=== PATIENT | female | born 1995 | race Caucasian/White ===

== ENCOUNTER → 2020-08-19 17:49 | Outpatient (CLI) | payer OTHER, SELFPAY | PROVIDERS: PCP Nurse Practitioner Family; Referring Provider Obstetrics & Gynecology; Visit Provider Obstetrics & Gynecology | DX: Z11.59 Encounter for screening for other viral diseases (principal) | CPT/HCPCS: 87635; C9803; U0003 ==

== ENCOUNTER 2020-08-24 19:00 | Inpatient (IN) | payer OTHER, SELFPAY ==
--- NOTE | 2020-08-24 19:28 | HP.PCM_ITS ---
- Problem List (1) History of anxiety Status: Acute (2) Post-dates Status: Acute (3) Encounter for induction of labor Status: Acute History Date of Admission: 08/24/20 Final GIOVANNI: 08/18/20 Final GIOVANNI Source: [place] <20 weeks Gestational age: 40 Weeks and 6 Days History of this : This is a 24 year-old, G [1], P [0], at 40weeks 6 days gestational age. uncomplicated. Presents for induction of labor due to postdates . 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 Expected Infant Delivery Method: Spontaneous Vaginal Review of Systems Constitutional: Denies: Chills, Fever, Weight Change HEENT: Denies: Head Aches, Sinus Congestion, Sinus Drainage Cardiovascular: Denies: Chest Pain, Palpitations Respiratory: Denies: Cough, Shortness of breath at rest, Sputum production Gastrointestinal: Denies: Abdominal Pain, Nausea, Vomiting Genitourinary: Denies: Dysuria Musculoskeletal: Denies: Joint Pain, Joint Tenderness Skin: Denies: Rash, Wounds Neurological: Denies: Numbness, Tingling, Focal weakness Psychiatric: Denies: Anxiety, Depression, Homicidal Ideations, Suicidal Ideations Hematologic/ Lymphatic: Denies: Easy Bruising, Easy Bleeding Physical Exam General: Alert, Oriented x3, No apparent distress HEENT: Atraumatic, Normocephalic. Negative for: Thyromegaly, Lymphadenopathy Cardiovascular: Regular rate, Regular Rhythm, No murmurs Lungs: Clear to auscultation, Normal air movement, No rhonchi, No wheeze Abdomen: Bowel Sounds Present, Gravid Extremities:: No edema Neurological: Deep Tendon Reflexes 2+/4 and Symmetrical. Negative for: Clonus FORMWORK CARPENTER: Normal external genitalia Estimated gestational size: Appropriate for gestational size Presentation: Cephalic Assessment/Plan All Active Problems History of anxiety (Acute) Post-dates (Acute) Encounter for induction of labor (Acute) This is a 24 year-old, G [1], P [0], at weeks gestational age. A:Postdates induction of labor Category 1 FHT P: 1) Admit to labor and delivery 2) Routine labs, IV 3) Yu catheter for cervical ripening and PO cytotec. 4) Continuous EFM 5) notified of patient status and collaborative physician.
[2020-08-24 19:29] VITALS: BP 121/77; PULSE 95; PULSE 96; TEMP 36.6; O2SAT 96
[2020-08-24] MEDS: Lactated Ringers 1,000 ML 50 ML IV (19:30)
[2020-08-24 19:42] VITALS: PULSE 108; O2SAT 96
[2020-08-24] MEDS: 0.9% Normal Saline Single 100 ML IV.SOLN. IY (19:45)
[2020-08-24 20:03] LABS: Absolute Lymphocyte Count 2.58 X10^3/uL (0.83-4.51); Absolute Neutrophil Count 9.8 X10^3/uL (2.0-7.7); Basophil# 0.07 X10^3/uL; Basophil% 0.5 % (0-1); Eosinophil# 0.41 X10^3/uL; Eosinophils% 2.9 % (0-5); Hematocrit 34.8 % (37-47); Hemoglobin 11.7 g/dL (12.0-15.0); Lymphocyte # 2.58 X10^3/ul (4.0); Lymphocyte % 18.1 % (19-41); Mean Corp Hgb Conc 33.6 g/dL (32-36); Mean Corpuscular Hgb 30.5 pg (27.0-32.0); Mean Corpuscular Volume 90.6 fL (81-99); Mean Platelet Vol. 10.5 fl (6.2-12.0); Monocyte# 1.02 X10^3/uL; Monocyte% 7.2 % (0-10); NRBC Flagged by Analyzer 0 % (0-5); Neutrophil # 9.78 X10^3/uL (2.7-7.7); Neutrophil % 68.5 % (47-70); Platelet Count 220 K/mm3 (150-450); RBC Distribution Width SD 42.6 fl (35.1-43.9); Red Blood Count 3.84 M/mm3 (4.2-5.4); White Blood Count 14.3 K/mm3 (4.4-11.0)
[2020-08-24 20:05] VITALS: BMI 34.2
[2020-08-24] MEDS: miSOPROStol 25 MCG TABLET PO (20:28)
[2020-08-25] VITALS (49 sets, daily range): BP systolic 99–142; BP diastolic 53–75; PULSE 66–116; TEMP 36.6–37.4; O2SAT 93–98
[2020-08-25] MEDS: Oxytocin 30 units/NS 500 ml 30 UNITS/500 ML IV.SOLN IV (00:20)
--- NOTE | 2020-08-25 07:51 | PN.OBGYN_ITS ---
Patient Problems: Active and Suspected Problems History of anxiety (Acute) Post-dates (Acute) Encounter for induction of labor (Acute) Subjective: Patient seen at bedside. Sitting on birthing ball. Feeling some contractions and pain but not to the point she wants pain control/ epidural. - Physical Exam Vitals/I&O's: Vital Signs Temp Pulse BP Pulse Ox 98.4 F 100 124/73 H 96 08/25/20 07:12 08/25/20 07:12 08/25/20 07:12 08/25/20 06:28 Weight: 193 lb 9.6 oz Body Mass Index (BMI) 34.2 Intake and Output for Last 24 Hours 08/23/20 08/24/20 08/25/20 23:59 23:59 23:59 Intake Total 188.33 / 188.33 143.50 / 143.50 Balance 188.33 / 188.33 143.50 / 143.50 General: Alert, Oriented x3, Cooperative Lungs: Normal air movement Cardiovascular: Regular Rhythm Abdomen: Soft, Non Tender, Gravid Skin: No rashes, No breakdown Neurological: Cranial nerves II-XII grossly intact Laboratory Results 08/24/20 19:30: WBC 14.3 H, RBC 3.84 L, Hgb 11.7 L, Hct 34.8 L, MCV 90.6, MCH 30.5, MCHC 33.6, RDW Std Deviation 42.6, RDW Coeff of La 13.0, Plt Count 220, MPV 10.5, Immature Gran % (Auto) 2.800 H, Neut % (Auto) 68.5, Lymph % (Auto) 18.1 L, Gray % (Auto) 7.2, Eos % (Auto) 2.9, Baso % (Auto) 0.5, Absolute Neuts (auto) 9.8 H, Absolute Lymphs (auto) 2.58, Nucleated RBC % 0 08/24/20 19:30: Blood Type A POSITIVE, Antibody Screen NEGATIVE Current Medications Acetaminophen (Tylenol) 325 - 650 mg PO Q4H PRN PRN PRN Reason: Pain Score 1-3 Al Hydroxide/Mg Hydroxide (Mylanta Ii) 15 - 30 ml PO Q4H PRN PRN PRN Reason: INDIGESTION Citric Acid/Sodium Citrate (Bicitra) 30 ml PO X1 PRN PRN Reason: Section Fentanyl Citrate (Sublimaze (100mcg Ampule)) 25 - 50 mcg IV Q2H PRN PRN PRN Reason: Pain Score 4-10 Lactated Ringer's () 500 mls @ 999 mls/hr IV .Q31M PRN PRN Reason: Epidural Lactated Ringer's () 500 mls @ 999 mls/hr IV .Q31M PRN PRN Reason: Corrective Measures Lactated Ringer's () 1,000 mls @ 50 mls/hr IV .Q20H [facility] Last Infusion: 08/25/20 00:20 Dose: 50 mls/hr Documented by: Oxytocin/Sodium Chloride () 30 units in 500 mls @ 2 mls/hr IV .Q250H [facility] Last Infusion: 08/25/20 07:47 Dose: 12 mls/hr Documented by: Penicillin G Potassium/Dextrose (Penicillin G Potassium) 3 mu in 50 mls @ 100 mls/hr IV Q4H [facility] Last Infusion: 08/25/20 04:57 Dose: Infused Documented by: Ondansetron HCl (Zofran) 4 mg IV Q4H PRN PRN PRN Reason: NAUSEA Prochlorperazine Edisylate (Compazine Iv) 10 mg IV Q6H PRN PRN PRN Reason: NAUSEA Sodium Chloride () 10 - 40 ml IV X1 PRN PRN Reason: SALINE FLUSH Medical Necessity - Tobacco Use Smoking Status: Never smoker Assessment/Plan All Active Problems History of anxiety (Acute) Post-dates (Acute) Encounter for induction of labor (Acute) at 41.0 weeks gestation for induction of labor Continue present management Foleybulb out this morning CE /-1 Pitocin IV at 10 mu/min and will continue to titrate per protocol GBS +, adequately treated at this time Category 1 tracing Desires A.R.O.M after epidural placement Anticipate
[2020-08-25] MEDS: Lactated Ringers 500 ML 999 ML IV ×2 (10:27→18:19)
[2020-08-25] MEDS: fentaNYL-bupivacaine (epidural) 100 ML BAG EPIDURAL ×3 (11:29→21:38)
[2020-08-25] MEDS: Lactated Ringers 1,000 ML 200 ML IV ×2 (12:25→18:07)
--- NOTE | 2020-08-25 13:08 | PN.OBGYN_ITS ---
Patient Problems: Active and Suspected Problems History of anxiety (Acute) Post-dates (Acute) Encounter for induction of labor (Acute) Subjective: Patient seen at bedside. Comfortable with epidural anesthesia. Denies any pain. Objective: CE- 5/80/-1 Category 1 tracing Pitocin IV at 16 mu/min - Physical Exam Vitals/I&O's: Vital Signs Temp Pulse BP Pulse Ox 98.1 F 80 123/75 H 97 08/25/20 11:42 08/25/20 11:56 08/25/20 11:56 08/25/20 11:53 Weight: 193 lb 9.6 oz Body Mass Index (BMI) 34.2 Intake and Output for Last 24 Hours 08/23/20 08/24/20 08/25/20 23:59 23:59 23:59 Intake Total 188.33 / 188.33 1507.96 / 1507.96 Output Total 850 / 850 Balance 188.33 / 188.33 657.96 / 657.96 General: Alert, Oriented x3 HEENT: Atraumatic Lungs: Normal air movement Cardiovascular: Regular rate Abdomen: Soft, Non Tender, Non-Distended, Gravid Skin: No rashes Neurological: Cranial nerves II-XII grossly intact Laboratory Results 08/24/20 19:30: WBC 14.3 H, RBC 3.84 L, Hgb 11.7 L, Hct 34.8 L, MCV 90.6, MCH 30.5, MCHC 33.6, RDW Std Deviation 42.6, RDW Coeff of La 13.0, Plt Count 220, MPV 10.5, Immature Gran % (Auto) 2.800 H, Neut % (Auto) 68.5, Lymph % (Auto) 18.1 L, [place] % (Auto) 7.2, Eos % (Auto) 2.9, Baso % (Auto) 0.5, Absolute Neuts (auto) 9.8 H, Absolute Lymphs (auto) 2.58, Nucleated RBC % 0 08/24/20 19:30: Blood Type A POSITIVE, Antibody Screen NEGATIVE Current Medications Acetaminophen (Tylenol) 325 - 650 mg PO Q4H PRN PRN PRN Reason: Pain Score 1-3 Al Hydroxide/Mg Hydroxide (Mylanta Ii) 15 - 30 ml PO Q4H PRN PRN PRN Reason: INDIGESTION Citric Acid/Sodium Citrate (Bicitra) 30 ml PO X1 PRN PRN Reason: Section Ephedrine Sulfate () 10 mg IV Q10M PRN PRN Reason: hypotension Ephedrine Sulfate () 10 mg IM Q30M PRN PRN Reason: hypotension Fentanyl Citrate (Sublimaze (100mcg Ampule)) 25 - 50 mcg IV Q2H PRN PRN PRN Reason: Pain Score 4-10 Fentanyl/Bupivacaine/Sodium Chlor () 0 ml EPIDURAL UD [facility]; Protocol Last Admin: 08/25/20 11:29 Dose: 100 ml Documented by: Lactated Ringer's () 500 mls @ 999 mls/hr IV .Q31M PRN PRN Reason: Epidural Last Infusion: 08/25/20 10:58 Dose: Infused Documented by: Lactated Ringer's () 500 mls @ 999 mls/hr IV .Q31M PRN PRN Reason: Corrective Measures Lactated Ringer's () 1,000 mls @ 50 mls/hr IV .Q20H [facility] Last Admin: 08/25/20 12:25 Dose: 200 mls/hr Documented by: Oxytocin/Sodium Chloride () 30 units in 500 mls @ 2 mls/hr IV .Q250H [facility] Last Infusion: 08/25/20 09:13 Dose: 16 mls/hr Documented by: Penicillin G Potassium/Dextrose (Penicillin G Potassium) 3 mu in 50 mls @ 100 mls/hr IV Q4H [facility] Last Infusion: 08/25/20 10:00 Dose: Infused Documented by: Nalbuphine HCl (Nubain) 5 mg IV Q3H PRN PRN PRN Reason: ITCHING Naloxone HCl (Narcan) 0.02 mg IV Q1M PRN PRN Reason: RR< 10 AND PT UNRESPONSIVE Ondansetron HCl (Zofran) 4 mg IV Q4H PRN PRN PRN Reason: NAUSEA Prochlorperazine Edisylate (Compazine Iv) 10 mg IV Q6H PRN PRN PRN Reason: NAUSEA Sodium Chloride () 10 - 40 ml IV X1 PRN PRN Reason: SALINE FLUSH Medical Necessity - Tobacco Use Smoking Status: Never smoker Assessment/Plan All Active Problems History of anxiety (Acute) Post-dates (Acute) Encounter for induction of labor (Acute) A/P at 41.0 weeks gestation for induction of labor Category 1 tracing A.R.O.M for large amount of clear fluid IUPC placed to assist with strength of contractions Continue present plan of care Anticipate
--- NOTE | 2020-08-25 18:04 | PCM.PN.BLA ---
Progress Note Patient seen at bedside. Resting well. Denies any pain Category 1 tracing NST reactive Pitocin at 18 mu/min IUPC not reading well- replaced with CE CE- 7/80/-1 A/P at 41.0 weeks gestation for induction of labor Continue present management Position changes with peanut ball Anticipate STROKE Vital Signs/Narrative: Vital Signs Temp Pulse BP Pulse Ox 08/25/20 17:58 99.3 F H 95 104/53 L 97 08/25/20 16:53 90 113/65 08/25/20 16:11 99.1 F 97 08/25/20 16:10 74 114/57 L 08/25/20 14:37 98.7 F 76 99/53 L 98
[2020-08-25] MEDS: Ondansetron 4 MG/2 ML Vial IV (20:49)
[2020-08-25] MEDS: 0.9% Saline Lock 10 ML Syringe IV (20:49)
[2020-08-26] VITALS (27 sets, daily range): BP systolic 107–129; BP diastolic 53–77; PULSE 65–123; RESP 16–18; TEMP 36.4–37.2; O2SAT 82–98
[2020-08-26] MEDS: 0.9% Saline Lock 10 ML Syringe IV (00:22)
[2020-08-26] MEDS: Lactated Ringers 1,000 ML 200 ML IV ×2 (00:22→07:19)
[2020-08-26] MEDS: Lactated Ringers 500 ML 999 ML IV (00:25)
[2020-08-26] MEDS: fentaNYL-bupivacaine (epidural) 100 ML BAG EPIDURAL ×2 (02:35→07:20)
--- NOTE | 2020-08-26 05:39 | PN.OBGYN_ITS ---
Subjective: Patient seen at bedside. Resting comfortably with epidural anesthesia. Denies any pain. Objective: CE- 9.5/100/0- Anterior lip Edematous labia - Physical Exam Vitals/I&O's: Vital Signs Temp Pulse BP Pulse Ox 98.3 F 70 107/65 96 08/26/20 01:35 08/26/20 01:35 08/26/20 01:35 08/26/20 01:35 Weight: 193 lb 9.6 oz Body Mass Index (BMI) 34.2 Intake and Output for Last 24 Hours 08/24/20 08/25/20 08/26/20 23:59 23:59 23:59 Intake Total 188.33 / 188.33 5126.40 / 5126.40 1130 / 1130 Output Total 3250 / 3250 200 / 200 Balance 188.33 / 188.33 1876.40 / 1876.40 930 / 930 General: Alert, Oriented x3 Lungs: Normal air movement Cardiovascular: Regular rate Abdomen: Soft, Non Tender, Gravid Skin: No rashes Neurological: Cranial nerves II-XII grossly intact Psych/Mental Status: Normal Affect, Appropriate Current Medications Acetaminophen (Tylenol) 325 - 650 mg PO Q4H PRN PRN PRN Reason: Pain Score 1-3 Al Hydroxide/Mg Hydroxide (Mylanta Ii) 15 - 30 ml PO Q4H PRN PRN PRN Reason: INDIGESTION Citric Acid/Sodium Citrate (Bicitra) 30 ml PO X1 PRN PRN Reason: Section Ephedrine Sulfate () 10 mg IV Q10M PRN PRN Reason: hypotension Ephedrine Sulfate () 10 mg IM Q30M PRN PRN Reason: hypotension Fentanyl Citrate (Sublimaze (100mcg Ampule)) 25 - 50 mcg IV Q2H PRN PRN PRN Reason: Pain Score 4-10 Fentanyl/Bupivacaine/Sodium Chlor () 0 ml EPIDURAL UD [facility]; Protocol Last Admin: 08/26/20 02:35 Dose: 100 ml Documented by: Lactated Ringer's () 500 mls @ 999 mls/hr IV .Q31M PRN PRN Reason: Epidural Last Infusion: 08/25/20 10:58 Dose: Infused Documented by: Lactated Ringer's () 500 mls @ 999 mls/hr IV .Q31M PRN PRN Reason: Corrective Measures Last Infusion: 08/26/20 00:56 Dose: Infused Documented by: Lactated Ringer's () 1,000 mls @ 50 mls/hr IV .Q20H [facility] Last Infusion: 08/26/20 00:56 Dose: 200 mls/hr Documented by: Oxytocin/Sodium Chloride () 30 units in 500 mls @ 2 mls/hr IV .Q250H [facility] Last Infusion: 08/25/20 21:45 Dose: 14 mls/hr Documented by: Penicillin G Potassium/Dextrose (Penicillin G Potassium) 3 mu in 50 mls @ 100 mls/hr IV Q4H [facility] Last Infusion: 08/26/20 03:00 Dose: Infused Documented by: Nalbuphine HCl (Nubain) 5 mg IV Q3H PRN PRN PRN Reason: ITCHING Naloxone HCl (Narcan) 0.02 mg IV Q1M PRN PRN Reason: RR< 10 AND PT UNRESPONSIVE Ondansetron HCl (Zofran) 4 mg IV Q4H PRN PRN PRN Reason: NAUSEA Last Admin: 08/25/20 20:49 Dose: 4 mg Documented by: Prochlorperazine Edisylate (Compazine Iv) 10 mg IV Q6H PRN PRN PRN Reason: NAUSEA Sodium Chloride () 10 - 40 ml IV X1 PRN PRN Reason: SALINE FLUSH Last Admin: 08/26/20 00:22 Dose: 10 ml Documented by: Medical Necessity - Tobacco Use Smoking Status: Never smoker Assessment/Plan All Active Problems History of anxiety (Acute) Post-dates (Acute) Encounter for induction of labor (Acute) at 41.1 weeks gestation induction of labor Category 1 tracing NST reactive GBS positive- adequately treated Continue present management CE- 9.5/100/0- will recheck in 30 minutes Anticipate
--- NOTE | 2020-08-26 10:21 | PCM.PN.OB ---
Patient Problems: Active and Suspected Problems History of anxiety (Acute) Post-dates (Acute) Encounter for induction of labor (Acute) Subjective: Pushing with good effort since 06. Comfortable with epidural. Objective: 120, minimal to moderate variability, accels, variable decels, category 2 TOCO: q2-4 minutes, strong Cervix: +3 station - Physical Exam Vitals/I&O's: Vital Signs Temp Pulse BP Pulse Ox 98.4 F 65 107/58 L 94 08/26/20 09:11 08/26/20 09:11 08/26/20 09:11 08/26/20 08:06 Weight: 193 lb 9.6 oz Body Mass Index (BMI) 34.2 Intake and Output for Last 24 Hours 08/24/20 08/25/20 08/26/20 23:59 23:59 23:59 Intake Total 188.33 / 188.33 5126.40 / 5126.40 2333.8 / 2333.8 Output Total 3250 / 3250 200 / 200 Balance 188.33 / 188.33 1876.40 / 1876.40 2133.8 / 2133.8 Current Medications Acetaminophen (Tylenol) 325 - 650 mg PO Q4H PRN PRN PRN Reason: Pain Score 1-3 Al Hydroxide/Mg Hydroxide (Mylanta Ii) 15 - 30 ml PO Q4H PRN PRN PRN Reason: INDIGESTION Citric Acid/Sodium Citrate (Bicitra) 30 ml PO X1 PRN PRN Reason: Section Ephedrine Sulfate () 10 mg IV Q10M PRN PRN Reason: hypotension Ephedrine Sulfate () 10 mg IM Q30M PRN PRN Reason: hypotension Fentanyl Citrate (Sublimaze (100mcg Ampule)) 25 - 50 mcg IV Q2H PRN PRN PRN Reason: Pain Score 4-10 Fentanyl/Bupivacaine/Sodium Chlor () 0 ml EPIDURAL UD [facility]; Protocol Last Admin: 08/26/20 07:20 Dose: 100 ml Documented by: Lactated Ringer's () 500 mls @ 999 mls/hr IV .Q31M PRN PRN Reason: Epidural Last Infusion: 08/25/20 10:58 Dose: Infused Documented by: Lactated Ringer's () 500 mls @ 999 mls/hr IV .Q31M PRN PRN Reason: Corrective Measures Last Infusion: 08/26/20 00:56 Dose: Infused Documented by: Lactated Ringer's () 1,000 mls @ 50 mls/hr IV .Q20H [facility] Last Admin: 08/26/20 07:19 Dose: 200 mls/hr Documented by: Oxytocin/Sodium Chloride () 30 units in 500 mls @ 2 mls/hr IV .Q250H [facility] Last Infusion: 08/26/20 09:27 Dose: 16 mls/hr Documented by: Penicillin G Potassium/Dextrose (Penicillin G Potassium) 3 mu in 50 mls @ 100 mls/hr IV Q4H [facility] Last Infusion: 08/26/20 08:02 Dose: Infused Documented by: Nalbuphine HCl (Nubain) 5 mg IV Q3H PRN PRN PRN Reason: ITCHING Naloxone HCl (Narcan) 0.02 mg IV Q1M PRN PRN Reason: RR< 10 AND PT UNRESPONSIVE Ondansetron HCl (Zofran) 4 mg IV Q4H PRN PRN PRN Reason: NAUSEA Last Admin: 08/25/20 20:49 Dose: 4 mg Documented by: Prochlorperazine Edisylate (Compazine Iv) 10 mg IV Q6H PRN PRN PRN Reason: NAUSEA Sodium Chloride () 10 - 40 ml IV X1 PRN PRN Reason: SALINE FLUSH Last Admin: 08/26/20 00:22 Dose: 10 ml Documented by: Medical Necessity - Tobacco Use Smoking Status: Never smoker Assessment/Plan All Active Problems History of anxiety (Acute) Post-dates (Acute) Encounter for induction of labor (Acute) A:Active labor, second stage category 2 FHT P: 1) notified of patient progress. Will push for approximately 30 minutes and assess for change, if no further decent will request vacuum. agrees with plan.
[2020-08-26] MEDS: Oxytocin 30 units/NS 500 ml 30 UNITS/500 ML IV.SOLN 334 UNITS IV (11:24)
--- NOTE | 2020-08-26 11:50 | PCM.OPRPT ---
Vaginal Delivery Maternal Presentation: Medically Indicated Induction Method of Induction: Pitocin, Yu Bulb, Amniotomy, Cytotec Medical Reason for Induction: Post term Amniotic Membrane Rupture Type: Artificial Amniotic Fluid Description: Clear Final GIOVANNI: 08/18/20 Gestational age: 41 Weeks and 1 Days Date of Procedure: 08/26/20 Pre-Operative Diagnosis: (1) Post dates (2) Maternal exhaustion Post-Operative Diagnosis: Same Surgery/ Procedure Performed: Vacuum Assisted Vaginal Delivery Type of Anesthesia: Epidural Description of Procedure: Patient had been pushing for over 4 hours. [facility] CNM's had been pushing with patient & noted good descent. Patient was fatigued and no additional descent was noted over the past 30+ minutes. Fetus was at the +3 station. Patient was assessed & head position confirmed. Patient was verbally consented for a vacuum delivery. She was prepped & draped in stirrups. Vacuum was placed and position on head confirmed. With next contraction good descent noted with gentle pull of the vacuum & good maternal pushing effort. Vacuum pressure decreased. This process was repeat 2 additional times & head was beginning to crown. Vacuum removed. Second degree episiotomy cut. Vacuum replaced & position on head confirmed. With next maternal push and gentle pull of the vacuum the head delivered while Rosa Mantilla (CNM) supported the perineum. Vacuum removed. Shoulders & body easily delivered. placed on maternal abdomen where 3VC clamped and cut in delayed fashion. Placenta delivered with gentle traction. Good uterine tone obtained. Presentation: SHAHEEN Placental Delivery Description: Expressed Placenta Disposition: [facility] Cord Vessel Description: 3 Vessels Nuchal Cord Compression: Without compression Cord Entanglement: Around neck x 1, loose Drain: Yu to straight drain Estimated Blood Loss: 500ml A gender: Female - Piper (1 minute): 8 (5 minute): 9 Episiotomy Description: 2nd degree - repaired with 3-0 vicryl Laceration: None Medications given after delivery: IV Pitocin Complications: None
[2020-08-26] MEDS: Methylergonovine 0.2 MG/ML Ampul IM (12:10)
[2020-08-26] MEDS: Ibuprofen 600 MG Tablet PO ×2 (12:54→19:04)
[2020-08-26] MEDS: Acetaminophen 500 MG Tablet 1000 MG PO (20:45)
[2020-08-27 04:00] VITALS: BP 125/83; PULSE 89; RESP 18; TEMP 36
[2020-08-27] MEDS: Ibuprofen 600 MG Tablet PO ×3 (04:13→19:57)
[2020-08-27 07:16] VITALS: BP 113/71; PULSE 71; RESP 18; TEMP 36.1
--- NOTE | 2020-08-27 08:43 | PCM.PN.OB ---
Patient Problems: Active and Suspected Problems History of anxiety (Acute) Post-dates (Acute) Encounter for induction of labor (Acute) Subjective: pain well controlled, average lochia. - Physical Exam Vitals/I&O's: Vital Signs Temp Pulse Resp BP Pulse Ox 96.8 F L 89 18 125/83 H 95 08/27/20 04:00 08/27/20 04:00 08/27/20 04:00 08/27/20 04:00 08/26/20 10:23 Oxygen Delivery Method Room Air Weight: 87.815 kg Body Mass Index (BMI) 34.2 Intake and Output for Last 24 Hours 08/25/20 08/26/20 08/27/20 23:59 23:59 23:59 Intake Total 5126.40 / 5126.40 3671.60 / 3671.60 Output Total 3250 / 3250 1000 / 1000 Balance 1876.40 / 1876.40 2671.60 / 2671.60 General: Alert, Cooperative, No apparent distress Current Medications Acetaminophen (Acetaminophen 500 Mg Tablet) 1,000 mg PO Q8H PRN PRN PRN Reason: Pain Score 1-3 Last Admin: 08/26/20 20:45 Dose: 1,000 mg Documented by: Bisacodyl (Bisacodyl 10 Mg Suppository) 10 mg RECTAL UD PRN PRN Reason: If no BM Dibucaine (Dibucaine 30 Gm Tube) 1 applic TOPICAL TID PRN PRN; Protocol PRN Reason: Discomfort Hydrocortisone (Hydrocortisone 2.5% Crm) 1 applic TOPICAL TID PRN PRN; Protocol PRN Reason: Discomfort Ibuprofen (Ibuprofen 600 Mg Tablet) 600 mg PO Q6H PRN PRN PRN Reason: Pain Score 1-3 Last Admin: 08/27/20 04:13 Dose: 600 mg Documented by: Methylergonovine Maleate (Methylergonovine 0.2 Mg/Ml Ampul) 0.2 mg IM X1 PRN PRN Reason: Excess bleeding/uterine atony Last Admin: 08/26/20 12:10 Dose: 0.2 mg Documented by: Ondansetron HCl (Ondansetron 4 Mg/2 Ml Vial) 4 mg IV Q4H PRN PRN PRN Reason: Nausea Oxycodone HCl (Oxycodone 5 Mg Tablet) 5 - 10 mg PO Q4H PRN PRN PRN Reason: Pain Score 4-10 Senna/Docusate Sodium (Senna/Docusate Sodium 1 Tablet) 1 - 2 tablet PO DAILY PRN PRN PRN Reason: Constipation Simethicone (Simethicone 80 Mg Tablet) 80 mg PO [facility] PRN PRN Reason: Indigestion/Stomach pain Sodium Chloride (0.9% Saline Lock 10 Ml Syringe) 5 - 15 ml IV UD PRN PRN Reason: SALINE FLUSH Throat Lozenges (Benzocaine/Lanolin/Aloe Vera 1 Applic Each) 1 applic TOPICAL 4X/DAY PRN PRN; Protocol PRN Reason: Rectal Discomfort Last Admin: 08/26/20 22:11 Dose: 1 applic Documented by: Medical Necessity - Tobacco Use Smoking Status: Never smoker Assessment/Plan All Active Problems History of anxiety (Acute) Post-dates (Acute) Encounter for induction of labor (Acute) PPD#1 routine care work on likely d/c home tomorrow
[2020-08-27] MEDS: Senna/Docusate Sodium 1 Tablet PO (08:56)
[2020-08-27] MEDS: Acetaminophen 500 MG Tablet 1000 MG PO ×2 (08:57→21:40)
[2020-08-27 13:15] VITALS: BP 106/70; PULSE 100; RESP 18; TEMP 36.9
--- NOTE | 2020-08-27 15:35 | CASEMGMT ---
Social Work Assessment Labor and Delivery Unit Date of Referral: 08/27/2020 Time of Referral: 1021 Referred By: Dr. Greta Briscoe Date of Intervention: 08/27/2020 Time of Intervention: 1535 Reason for Referral: Mother of baby (MOB) with history of Anxiety. History obtained from: MOB, Father of baby (FOB), Chart, Nursing staff. Household composition: MOB, FOB (Charles Steven) and this (Peyton Steven) live in private home together. Patient's parent/guardian status: MOB and FOB have been for 5 ? years. This is first for both MOB and FOB. MOB reports that was planned and accepted. Medical History: MOB with history prior to having this infant. MOB with induction of labor at 40 weeks with a vaginal delivery. MOB with history of Anxiety that started in 2018. Infant born on 08/26/2022 with weight of 3640g and apgars of 8 and 9 at 1min and 5min. MOB with appropriate care. to follow with Dr. Kishore Coronel as cardiopulmonary specialist. Educational Status: MOB denies any concerns with comprehension or understanding. Financial Status: MOB works full-time at [employer] and plans to have off until 2020. FOB works full-time at [employer] and will have three weeks off. Infant Supplies: MOB reports to have needed supplies in the home including car seat and crib. MOB reports plan to breastfeed and that ?it is going okay.? Childcare/Caregiver(s): MOB plans to be primary caregiver for until returning to work in 2020. Transportation: No concerns. Programs/Agencies Involved: No active community resources. No needs identified for referrals. Children Services/Legal Issues: No history of children services. No legal issues. Mental Health History: MOB reports to have been diagnosed with Anxiety in 2018. MOB reports to have started medications to manage mental illness and ?they help.? MOB denies any suicidal thoughts/plans/intents or history of. MOB reports to have positive supports and feels safe speaking with supports. MOB denies any active counseling or history of. MOB was open to receiving list of local counseling agencies if MOB finds that counseling would be helpful. This social services director able to facilitate conversation with MOB about depression signs and symptoms. MOB engaged and respective to information. Substance Use History: Denies substance abuse/use. Maternal and Infant Drug Screens: No tox screens completed on MOB or infant. PHQ9: Did not trigger. Family/Social Stressors: Denies any current stressors outside adjusting to life with an infant. Support Systems: MOB reports to have support from family and local community. Depression and Anxiety/Shaken Baby/Safe Sleeping: MOB provided with written information on depression and anxiety, shaken baby, safe sleeping, counseling agencies, and local [facility] resources. MOB and FOB responding appropriately to shaken baby and safe sleeping prompts. ASSESSMENT: Met with MOB and FOB in room. Introduced self and social services director role. MOB agreeable to speaking with this social services director. MOB providing verbal permission for this social services director to speak openly with FOB present. currently in well baby nursery with nursing staff for testing. MOB reports to have a connection with infant. MOB reports that is ?tough.? MOB reports plan to continue to work towards . This social services director normalizing MOB?s feelings/thoughts. MOB presenting with positive and engaged affect. MOB denies any concerns or needs in the community. PLAN: Infant to discharge to home with MOB and FOB. No other services requested or indicated. Tucker Goodman MSW, JACKIE
[2020-08-27 16:07] VITALS: BP 111/59; PULSE 74; RESP 18; TEMP 36.7
[2020-08-27 20:00] VITALS: BP 115/66; PULSE 78; RESP 18; TEMP 36.7
[2020-08-27] MEDS: Hydrocortisone 2.5% Crm 1 APPLIC TOPICAL (22:40)
[2020-08-27] MEDS: DiphenhydrAMINE 25 MG Capsule PO (22:41)
[2020-08-28 01:55] VITALS: BP 114/63; PULSE 70; RESP 18; TEMP 37
[2020-08-28 08:30] VITALS: BP 107/72; PULSE 84; RESP 16; TEMP 36.7
--- NOTE | 2020-08-28 08:36 | DCINST_ITS ---
Discharge Diet: No Restrictions Discharge Activity: May Drive, May Not Drive, May Shower May resume sexual activity in: 6 weeks Weight Bearing Status: Weight bearing as tolerated Additional Instructions: If you experience any of the following, contact your healthcare provider. * Bleeding that soaks a pad every hour for 2 hours * Fever 100.4 or higher * Unrelieved incision or abdominal pain * Swelling, redness, discharge or bleeding from your incision or episiotomy site * Your incision begins to separate * Problems urinating (including inability to urinate or burning while urinating). * Visual changes * Severe headache * Flu-like symptoms * Pain or redness in one of both of your breasts * Pain, warmth, tenderness or swelling in your legs, especially the calf area * Frequent nausea and vomiting * Symptoms of depression or anxiety If you experience any of the following, call 911 or go to the nearest Emergency Room. * Chest pain * Problems breathing * Seizure activity * Partial or complete paralysis of a body part, slurred speech, weakness or drooping of the face, or a sudden inability to walk or hold your balance Allergies/Adverse Reactions: Allergies chlorhexidine Adverse Reaction (Verified 08/24/20 20:09) Hives Medications to take at Discharge Pnv No.95/Ferrous Fum/Folic AC [ Caplet] 1 tab PO DAILY 08/24/20 Sertraline HCl 25 mg PO DAILY 08/24/20 Acetaminophen [Tylenol] 1,000 mg PO Q8H PRN PRN tablet 08/28/20 Ibuprofen [Motrin] 600 mg PO Q6H PRN PRN tablet 08/28/20 Primary Care Physician: Rocio Parsons OPERATORS SCHOOL MANAGER, OPERATORS SCHOOL MANAGER-C [Primary Care Provider] - Test Results: Test results from this visit will be discussed in further detail at your follow- up appointment, if applicable.
--- NOTE | 2020-08-28 08:36 | PCM.PN.OB ---
Patient Problems: Active and Suspected Problems History of anxiety (Acute) Post-dates (Acute) Encounter for induction of labor (Acute) Subjective: No complaints - Physical Exam Vitals/I&O's: Vital Signs Temp Pulse Resp BP Pulse Ox 98.6 F 70 18 114/63 95 08/28/20 01:55 08/28/20 01:55 08/28/20 01:55 08/28/20 01:55 08/26/20 10:23 Oxygen Delivery Method Room Air Weight: 193 lb 9.6 oz Body Mass Index (BMI) 34.2 Intake and Output for Last 24 Hours 08/26/20 08/27/20 08/28/20 23:59 23:59 23:59 Intake Total 3671.60 / 3671.60 Output Total 1000 / 1000 Balance 2671.60 / 2671.60 General: Alert, Oriented x3 Abdomen: Soft, Non Tender, Non-Distended - ff mid & below umb Extremities: No Calf Tenderness Current Medications Acetaminophen (Acetaminophen 500 Mg Tablet) 1,000 mg PO Q8H PRN PRN PRN Reason: Pain Score 1-3 Last Admin: 08/27/20 21:40 Dose: 1,000 mg Documented by: Bisacodyl (Bisacodyl 10 Mg Suppository) 10 mg RECTAL UD PRN PRN Reason: If no BM Dibucaine (Dibucaine 30 Gm Tube) 1 applic TOPICAL TID PRN PRN; Protocol PRN Reason: Discomfort Diphenhydramine HCl (Diphenhydramine 25 Mg Capsule) 25 mg PO Q6H PRN PRN PRN Reason: ITCHING Last Admin: 08/27/20 22:41 Dose: 25 mg Documented by: Hydrocortisone (Hydrocortisone 2.5% Crm) 1 applic TOPICAL TID PRN PRN; Protocol PRN Reason: Discomfort Last Admin: 08/27/20 22:40 Dose: 1 applicatio Documented by: Ibuprofen (Ibuprofen 600 Mg Tablet) 600 mg PO Q6H PRN PRN PRN Reason: Pain Score 1-3 Last Admin: 08/27/20 19:57 Dose: 600 mg Documented by: Methylergonovine Maleate (Methylergonovine 0.2 Mg/Ml Ampul) 0.2 mg IM X1 PRN PRN Reason: Excess bleeding/uterine atony Last Admin: 10/13/20 12:10 Dose: 0.2 mg Documented by: Ondansetron HCl (Ondansetron 4 Mg/2 Ml Vial) 4 mg IV Q4H PRN PRN PRN Reason: Nausea Oxycodone HCl (Oxycodone 5 Mg Tablet) 5 - 10 mg PO Q4H PRN PRN PRN Reason: Pain Score 4-10 Senna/Docusate Sodium (Senna/Docusate Sodium 1 Tablet) 1 - 2 tablet PO DAILY PRN PRN PRN Reason: Constipation Last Admin: 08/27/20 08:56 Dose: 2 tablet Documented by: Simethicone (Simethicone 80 Mg Tablet) 80 mg PO PCHS PRN PRN Reason: Indigestion/Stomach pain Sodium Chloride (0.9% Saline Lock 10 Ml Syringe) 5 - 15 ml IV UD PRN PRN Reason: SALINE FLUSH Throat Lozenges (Benzocaine/Lanolin/Aloe Vera 1 Applic Each) 1 applic TOPICAL 4X/DAY PRN PRN; Protocol PRN Reason: Rectal Discomfort Last Admin: 08/26/20 22:11 Dose: 1 applic Documented by: Medical Necessity - Tobacco Use Smoking Status: Never smoker Assessment/Plan All Active Problems History of anxiety (Acute) Post-dates (Acute) Encounter for induction of labor (Acute) PPD#2 D/c home Encouraged
--- NOTE | 2020-08-28 08:36 | PCM.DCVAG ---
Discharge Diet: No Restrictions Discharge Activity: May Drive, May Not Drive, May Shower May resume sexual activity in: 6 weeks Weight Bearing Status: Weight bearing as tolerated Additional Instructions: If you experience any of the following, contact your healthcare provider. Bleeding that soaks a pad every hour for 2 hours Fever 100.4 or higher Unrelieved incision or abdominal pain Swelling, redness, discharge or bleeding from your incision or episiotomy site Your incision begins to separate Problems urinating (including inability to urinate or burning while urinating). Visual changes Severe headache Flu-like symptoms Pain or redness in one of both of your breasts Pain, warmth, tenderness or swelling in your legs, especially the calf area Frequent nausea and vomiting Symptoms of depression or anxiety If you experience any of the following, call 911 or go to the nearest Emergency Room. Chest pain Problems breathing Seizure activity Partial or complete paralysis of a body part, slurred speech, weakness or drooping of the face, or a sudden inability to walk or hold your balance Allergies/Adverse Reactions: Allergies chlorhexidine Adverse Reaction (Verified 08/24/20 20:09) Hives Medications to take at Discharge Pnv No.95/Ferrous Fum/Folic AC [ Caplet] 1 tab PO DAILY 08/24/20 Sertraline HCl 25 mg PO DAILY 08/24/20 Acetaminophen [Tylenol] 1,000 mg PO Q8H PRN PRN tablet 08/28/20 Ibuprofen [Motrin] 600 mg PO Q6H PRN PRN tablet 08/28/20 Primary Care Physician: Rocio Parsons APPLICATION PACKAGING SPECIALIST, APPLICATION PACKAGING SPECIALIST-C [Primary Care Provider] - Test Results: Test results from this visit will be discussed in further detail at your follow-up appointment, if applicable.
[2020-08-28] MEDS: Acetaminophen 500 MG Tablet 1000 MG PO (09:52)
[2020-08-28] MEDS: Senna/Docusate Sodium 1 Tablet PO (09:52)
[2020-08-28] MEDS: Ibuprofen 600 MG Tablet PO (11:37)
== END 2020-08-28 12:00 | disposition home or self-care (01) | DRG 807 ==
PROVIDERS: Advanced Practice Midwife; Admitting Provider Obstetrics & Gynecology; PCP Nurse Practitioner Family; Visit Provider Obstetrics & Gynecology
DX: O75.81 Maternal exhaustion complicating labor and delivery (principal); Z37.0 Single live birth; O99.824 Streptococcus B carrier state complicating childbirth; O48.0 Post-term pregnancy; O99.344 Other mental disorders complicating childbirth; Z3A.41 41 weeks gestation of pregnancy; F41.9 Anxiety disorder, unspecified; O69.81X0 Labor and delivery complicated by cord around neck, without compression, not applicable or unspecified
CPT/HCPCS: 59025; 59050; 85025; 86850; 86900; 86901; 99218; J7120; A4216; G0378; J2405

== ENCOUNTER 2020-09-23 16:01 | Outpatient (CLI) | payer OTHER, SELFPAY | END 2020-09-23 16:30 | disposition home or self-care (01) | LOC: TELEHEALTH 09-24 13:01 | PROVIDERS: PCP Nurse Practitioner Family; Visit Provider Registered Nurse Lactation Consultant | DX: P92.5 Neonatal difficulty in feeding at breast (principal) | CPT/HCPCS: 96158 ==

== ENCOUNTER 2020-10-17 12:59 | Outpatient (CLI) | payer OTHER, SELFPAY | END 2020-10-17 13:18 | disposition home or self-care (01) | LOC: TELEHEALTH 10-20 13:07 | PROVIDERS: PCP Nurse Practitioner Family; Referring Provider Registered Nurse Lactation Consultant; Visit Provider Registered Nurse Lactation Consultant | DX: P92.5 Neonatal difficulty in feeding at breast (principal) | CPT/HCPCS: 96158 ==

== ENCOUNTER → 2020-11-20 19:30 | Outpatient (CLI) | payer OTHER, SELFPAY | PROVIDERS: PCP Nurse Practitioner Family; Referring Provider Advanced Practice Midwife; Visit Provider Advanced Practice Midwife | DX: R63.3 Feeding difficulties (principal) | CPT/HCPCS: 96158 ==

== ENCOUNTER → 2021-01-07 20:30 | Outpatient (CLI) | payer OTHER, SELFPAY | PROVIDERS: PCP Nurse Practitioner Family; Referring Provider Obstetrics & Gynecology; Visit Provider Obstetrics & Gynecology | DX: R63.3 Feeding difficulties (principal) | CPT/HCPCS: 96158 ==

== ENCOUNTER 2023-07-31 22:15 | Inpatient (IN) | payer OTHER, SELFPAY ==
[2023-07-31 21:03] VITALS: BMI 34.7
[2023-07-31 21:06] VITALS: BP 135/83; PULSE 98; TEMP 36.8; O2SAT 92
[2023-07-31 21:48] LABS: ROM Internal Control Test YES-OK TO RESULT pt. (Internal QC); ROM Patient Test Negative (Negative); Record Kit Lot#, ROM+ K1409
[2023-07-31] MEDS: Lactated Ringers 1,000 ML 50 ML IV (22:25)
[2023-07-31 22:43] LABS: Absolute Lymphocyte Count 3.38 X10^3/uL (0.83-4.51); Absolute Neutrophil Count 10.6 X10^3/uL (2.0-7.7); Basophil# 0.05 X10^3/uL; Basophil% 0.3 % (0-1); Eosinophil# 0.74 X10^3/uL; Eosinophils% 4.5 % (0-5); Hematocrit 36.8 % (37-47); Hemoglobin 12.7 g/dL (12.0-15.0); Lymphocyte # 3.38 X10^3/ul (0.83-4.51); Lymphocyte % 20.6 % (19-41); Mean Corp Hgb Conc 34.5 g/dL (32-36); Mean Corpuscular Hgb 30.7 pg (27.0-32.0); Mean Corpuscular Volume 88.9 fL (81-99); Mean Platelet Vol. 10.7 fl (6.2-12.0); Monocyte# 1.09 X10^3/uL; Monocyte% 6.6 % (0-10); NRBC Flagged by Analyzer 0 % (0-5); Neutrophil # 10.55 X10^3/uL (2.7-7.7); Neutrophil % 64.2 % (47-70); Platelet Count 225 K/mm3 (150-450); RBC Distribution Width CV 12.7 % (11.6-14.6); RBC Distribution Width SD 41.7 fl (35.1-43.9); Red Blood Count 4.14 M/mm3 (4.2-5.4); White Blood Count 16.4 K/mm3 (4.4-11.0)
[2023-07-31 22:53] VITALS: BP 119/66; PULSE 88
[2023-07-31] MEDS: Penicillin G Pot 5,000,000 UNITS in 0.9% Normal Saline (100mL MB+) 100 ML 150 UNITS IV (22:55)
[2023-08-01] VITALS (72 sets, daily range): BP systolic 94–145; BP diastolic 51–82; PULSE 78–133; RESP 16–18; TEMP 36.2–37.7; O2SAT 88–100
[2023-08-01 00:04] LABS: Syphilis Antibodies Non-reactive
[2023-08-01] MEDS: LACTATED RINGERS 500 ML 999 ML IV ×2 (00:20→02:30)
--- NOTE | 2023-08-01 01:31 | PCM.HP.OB ---
HPI - General General Date of Admission: 07/31/23 Date of Service: 08/01/23 Chief Complaint: labor HPI Narrative [place], is a 27 F 2 para 1 at 38-4/7 weeks gestation presents complaining of leaking of fluid starting approximately 9 PM on 07/31/2023. She is also having some irregular contractions. Notes gross vaginal bleeding. Past medical history significant for nausea vomiting in and anxiety. She had an abnormal 1 hour during the but a normal 3-hour. She has a history of 1 previous vaginal delivery. She had a vacuum extraction for maternal exhaustion. The delivery was uncomplicated. Maternal Data Information Final GIOVANNI: 08/11/23 Gestational age: 39 4/7 [facility] Medical History (Updated 08/01/23 @ 01:[address] Greta Briscoe MD) Anxiety Home Medications vit no.95-ferrous fumarate 28 mg-folic acid 800 mcg tablet 1 tab PO DAILY Check with primary doctor 08/24/20 [History Last Taken 07/30/23 22:00] sertraline 25 mg tablet 25 mg PO DAILY Check with primary doctor 08/24/20 [History Last Taken 07/30/23 22:00] acetaminophen 500 mg tablet 1,000 mg (2 x 500 mg) PO Q8H PRN PRN Pain Score 1-3 08/28/20 [Rx Last Taken Unknown] ibuprofen 600 mg tablet 600 mg PO Q6H PRN PRN Pain Score 1-3 08/28/20 [Rx Last Taken Unknown] Allergy/AdvReac Type Severity Reaction Status Date / Time chlorhexidine AdvReac Hives Verified 07/31/23 21:01 Surgical History (Updated 07/31/23 @ 22:38 by Lana Bautista) History of surgery Social History Smoking Status: Never smoker History Elective abortions Hx Para 1 Spontaneous abortions Hx # Term Pregnancies Ectopic pregnancies Hx # Pregnancies Multiple births # of living children ROS Constitutional Constitutional: Denies fatigue, fever(s) or malaise Eyes Eyes: Denies change in vision ENT HEENT: Denies dizziness or headache(s) Cardiovascular Cardiovascular: Denies chest pain, dyspnea or lightheadedness Respiratory/Chest Respiratory/Chest: Denies cough or dyspnea Gastrointestinal Gastrointestinal: Denies change in bowel habits Genitourinary Genitourinary: Denies burning urination or genital lesions Integumentary Integumentary: Denies rash Neurologic Neurologic: Denies confusion, dizziness, headache(s), numbness or weakness Vital Signs Vital Signs Vital Signs: 07/31/23 21:06 07/31/23 21:06 07/31/23 21:06 Temperature Temperature Source Temporal Pulse Rate 98 Blood Pressure 135/83 H BP Systolic 135 BP Diastolic 83 Pulse Ox 07/31/23 21:06 07/31/23 21:06 07/31/23 22:53 Temperature 98.2 F Temperature Source Pulse Rate Blood Pressure 119/66 BP Systolic 119 BP Diastolic 66 Pulse Ox 92 07/31/23 22:53 08/01/23 00:01 08/01/23 00:01 Temperature Temperature Source Pulse Rate 88 81 Blood Pressure 117/62 BP Systolic 117 BP Diastolic 62 Pulse Ox 08/01/23 00:01 08/01/23 00:01 08/01/23 00:35 Temperature 99.8 F H Temperature Source Temporal Pulse Rate 96 Blood Pressure BP Systolic BP Diastolic Pulse Ox 08/01/23 00:35 08/01/23 01:25 08/01/23 01:25 Temperature Temperature Source Temporal Pulse Rate Blood Pressure 122/56 H BP Systolic 122 BP Diastolic 56 Pulse Ox 97 08/01/23 01:25 08/01/23 01:25 Temperature 99.4 F H Temperature Source Pulse Rate 79 Blood Pressure BP Systolic BP Diastolic Pulse Ox Weight Weight: 89.1 kg Body Mass Index (BMI) 34.7 Physical Exam Const alert and no apparent distress General Appearance: cooperative HEENT normocephalic Resp normal respiratory effort Cardio regular rate GI soft to palpation GI Narrative: gravid, nontender, appropriate for gestational age Extremity no calf tenderness General Extremity: edema Skin no wounds Rashes: No rashes noted Psych activity/motor behavior normal Labs Labs Labs: Blood Type A POSITIVE Antibody Screen NEGATIVE Hct 36.8 % (37-47) L Hgb 12.7 g/dL (12.0-15.0) Syphilis Total Ab Non-reactive Rhogam given: No Assessment & Plan (1) 38 weeks gestation of : PLAN: 27-year-old 2 para 1 at 38-4/7 weeks gestation with spontaneous labor. Estimated weight is less than 4500 g clinically and pelvis clinically adequate to expect vaginal delivery. May have routine pain control measures as needed and as desired during labor. Expectant management for vaginal delivery (2) SROM (spontaneous rupture of membranes): (3) Spontaneous onset of labor:
[2023-08-01] MEDS: Penicillin G 3,000,000 Units 50 ML 100 UNITS IV ×2 (03:04→06:55)
[2023-08-01] MEDS: fentaNYL-bupivacaine (epidural) 100 ML BAG EPIDURAL (03:36)
[2023-08-01] MEDS: Lactated Ringers 1,000 ML 200 ML IV (06:26)
[2023-08-01] MEDS: Oxytocin 10 UNITS/ML Vial IM (08:01)
[2023-08-01] MEDS: Oxytocin 15 Units/NS 250ml 15 UNITS/250 ML IV.SOLN 83 UNITS IV (08:02)
--- NOTE | 2023-08-01 08:08 | EX.PCM.OBRPT ---
Assessment & Plan (1) (spontaneous vaginal delivery): Maternal Data Information Final GIOVANNI: 07/31/23 Gestational age: 40 1/7 Vaginal Delivery Maternal Presentation Maternal Presentation: Active Labor Operative Information Date of Procedure: 08/01/23 Pre-Operative Diagnosis: labor Post-Operative Diagnosis: same Surgery / Procedure Performed: Spontaneous Vaginal Delivery Type of Anesthesia: Epidural Drain: Yu to straight drain Estimated Blood Loss: 200 Time of Delivery: 08:10 Findings Description of Procedure: A vigorous male was delivered SHAHEEN over a first-degree vaginal laceration. The remainder the was delivered with maternal pushing and gentle traction only in less than 15 seconds. The Pitocin infusion was initiated for active management of the third stage. The cord was clamped and cut after cord pulsations ceased. The was attended to by the waiting nursing staff. The placenta was delivered spontaneously and intact. The cervix and vagina were intact. The first-degree laceration was repaired with 3-0 Vicryl repeat suture in a running standard fashion and was hemostatic. Sponge and needle counts were correct. A vaginal sweep was completed by me. Presentation: SHAHEEN Amniotic Membrane Rupture Type: Spontaneous Amniotic Fluid Description: Clear Placental Delivery Description: Spontaneous Placenta Disposition: [facility] Cord Vessel Description: 3 Vessels Cord Entanglement: None Cord Gases: ABG and VBG A Gender: Male (Renard) (1 minute): 9 (5 minute): 9 Delayed Cord Clamping: Yes Post Vaginal Delivery Medications Given After Delivery: IV Pitocin and IM Pitocin Episiotomy Description: None Laceration: 1st degree Complication Complications: None
[2023-08-01] MEDS: Sertraline 50 MG Tablet 25 MG PO (21:44)
[2023-08-01] MEDS: Acetaminophen 500 MG Tablet 1000 MG PO (21:56)
[2023-08-02 01:10] VITALS: BP 99/52; PULSE 86; RESP 14; TEMP 36.7; O2SAT 95
[2023-08-02 04:50] VITALS: BP 112/70; PULSE 89; RESP 16; TEMP 36.6; O2SAT 96
[2023-08-02 08:20] VITALS: BP 122/54; PULSE 87; RESP 16; TEMP 36.9
--- NOTE | 2023-08-02 08:56 | PCM.PN.OB ---
Subjective Subjective Denies complaints Objective Data Objective Data Vital Signs: Vital Signs Temp Pulse Resp BP Pulse Ox O2 Del Method 97.8 F 89 16 112/70 96 Room Air 08/02/23 04:50 08/02/23 04:50 08/02/23 04:50 08/02/23 04:50 08/02/23 04:50 08/02/23 04:50 Oxygen Delivery Method Room Air Weight: 196 lb 6.91 oz Body Mass Index (BMI) 34.7 Intake & Output: Intake and Output for Last 24 Hours 07/31/23 08/01/23 08/02/23 23:59 23:59 23:59 Intake Total 146.67 / 146.67 2611.66 / 2611.66 Output Total 900 / 900 Balance 146.67 / 146.67 1711.66 / 1711.66 Lab / Micro Data 07/31/23 22:25 Physical Exam Const alert, oriented x3 and no apparent distress HEENT normocephalic GI soft to palpation, non-tender and non-distended GI Narrative: fundus firm, mid & below umbilicus Extremity normal to inspection and no calf tenderness Assessment & Plan (1) (spontaneous vaginal delivery): PLAN: Plan D/c home
--- NOTE | 2023-08-02 08:57 | DS.PCM_ITS ---
Providers Date of Admission: 07/31/23 Primary Care Physician: KENYA VillaC Reason For Visit: VAGINAL DELIVERY Diagnosis Discharge Diagnosis (1) (spontaneous vaginal delivery): Status: Acute Code(s): O80 - Encounter for full-term uncomplicated delivery Plan D/c home Medications at Discharge Home Medications vit no.95-ferrous fumarate 28 mg-folic acid 800 mcg tablet 1 tab PO DAILY Check with primary doctor 08/24/20 sertraline 25 mg tablet 25 mg PO DAILY Check with primary doctor 08/24/20 acetaminophen 500 mg tablet 1,000 mg (2 x 500 mg) PO Q8H PRN PRN Pain Score 1-3 08/28/20 ibuprofen 600 mg tablet 600 mg PO Q6H PRN PRN Pain Score 1-3 08/28/20 Hospital Course Summary of Care Provided Minutes Spent on Discharge: 10 Weight / BMI Weight Weight: 196 lb 6.91 oz Body Mass Index (BMI) 34.7 ABG / Lab / Microbiology Data 07/31/23 22:25 D/C Instructions Discharge Diet: No restrictions Discharge Activity: May Shower May resume sexual activity in: 6 weeks Weight Bearing Status: Weight bearing as tolerated Call your doctor if you observe: Fever of 101 or Higher, Coldness, Increased Pain, Change in Color, Inability to urinate, Inability to have a bowel movement, Using more than 1 pad per hour, Shortness of breath, Dizziness, Fainting spells, Chest pain, Increased palpitations (irregular heartbeat), Calf discomfort and Uncontrolled pain Please Follow Up With: Greta Briscoe MD When: Follow up in 2 and 6 weeks for visits. Meaningful Use Info Meaningful Use Diagnoses (Choose all that apply): None applicable Discharge Plan Admission Admit Date/Time: 07/31/23 22:15 Primary Reason for Your Visit: Vaginal delivery Attending Provider: Greta Briscoe Primary Care Provider: Rocio Parsons NP Discharge Orders/Prescriptions Prescriptions: Continued sertraline 25 MG tablet 25 mg PO DAILY PNV cmb#95-ferrous fumarate-FA 1 EACH tablet 1 tab PO DAILY acetaminophen 500 MG tablet 1,000 mg PO Q8H PRN PRN (Reason: Pain Score 1-3) 0RF ibuprofen 600 MG tablet 600 mg PO Q6H PRN PRN (Reason: Pain Score 1-3) 0RF Referrals / Follow Up: Parsons,Rocio DIESEL MOTOR MECHANIC, DIESEL MOTOR MECHANIC-C [Primary Care Provider] - Disposition Disposition (needs filled in before D/C Order can be placed): Home, Self Care
[2023-08-02] MEDS: Acetaminophen 500 MG Tablet 1000 MG PO (11:40)
--- NOTE | 2023-08-02 13:10 | CASEMGMT ---
Social Work Assessment Labor and Delivery Unit Patient [place] [address] Phone number: [phone] Date of Referral: 08/01/23 Time of Referral:? 903 Referred By: Greta Briscoe Date of Intervention: ??08/02/23 Time of Intervention:? 1129 Reason for Referral:? anxiety Sw completed chart review and acknowledges social work consult due to maternal mental health positive for anxiety. Sw presented to bedside, introduced self to mother of baby (MOB- Anne Marie) and father of baby (FOB- Charles). Sw explained reason for sw involvement, completed psychosocial assessment. Sw asked FOB to step out of the room briefly so that MOB could complete an [place] Depression Scale questionnaire. FOB did so respectfully. History obtained from: medical records, MOB and FOB. Household composition: Currently residing in the family home is FOLorie, RIA, baby boy and their first child, Peyton (: 08/24/2020). MOB states that their housing is safe and secure- no concerns regarding housing at this time. Patient's parent/guardian status:? MOB reports that she and FOB were high school sweethearts and have been together for 10 years. While meeting with MOB privately, she denies any concerns of domestic violence or intimate partner violence. Medical History:RIA is 2, para 1- now 2. MOB received routine care with [facility] during . MOB delivered baby boy at 38 weeks gestation via vaginal delivery. Baby boy, named Renard Crespo, was born on [birth year] weighing 8lb 2oz and his apgars were 9 and 9 at one and five minutes of life respectfully. Baby will be followed by Dr. Hoffman at [facility]. Educational Status:?Both parents graduated from high school and have college degrees. 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 FOB states that he is able to take 3 weeks off of work, and MOB states that she is able to take the full 12 weeks off of work for maternity leave. Supplies:?Parents state that they have obtained all necessary baby items, including: car seat, safe sleep space, clothes, diapers, wipes and a breast pump. Childcare/Caregiver(s):? MOB states that when both parents have returned to work they have family who will be providing child welfare social worker for them. Transportation:??Both parents have their drivers license and reliable means of transportation. No transportation barriers at this time. Programs/Agencies Involved: ??Parents are not connected to any community resources at this time. ?No concerns warranting Help [facility] referral. Children Services/Legal Issues:??? Parents deny involvement in the past. No issues or concerns warranting a referral to be made at this time. Behavioral Health Issues: ??Mental Health History: MOB states that she has been diagnosed with anxiety and did have anxiety following the of her first baby. Sw educated MOB on signs and symptoms of baby blues and depression. Sw asked MOB to complete the [place] Depression Scale, her score was a 3. Sw educated MOB on what her score meant and encouraged MOB to get re-connected with community counseling should she experience either or. MOB expressed understanding. Substance Use History:?MOB denies substance use prior to and during . ? Family History:??MOB states there is no mental health or substance use history on either side of the family. ??? Drug Screens: ?No urine screens observed in chart review. Family/Social Stressors:? Parents deny any stressors at this time. Support Systems: Parents state they have a lot of friends and family who are supportive. Depression/Shaken Baby/Safe Sleeping: Sw educated parents on signs and symptoms of baby blues and depression/ anxiety. Sw encouraged parents to talk about ways that family members, friends and FOB can help MOB if she were to struggle with either. Parents expressed understanding. Sw educated parents on shaken baby prevention and ABCs of safe sleep. Both parents expressed understanding. .?? ASSESSMENT:? MOB is admitted following delivery of second baby. MOB with mental health history positive for anxiety and anxiety. MOB with prescribed zoloft and states that it has helped her a lot. MOB with natural supports in place and was receptive to receiving list of resources available in [facility]. Parents with everything they need for baby. MOB was observed providing loving hands on care to baby. Parents receptive to sw involvement and support. PLAN:? MOB and baby to be discharged when medically ready. ?No other services requested or indicated. Otto Prakash, AIR DEFENCE OFFICER, CONSERVATION EDUCATOR
[2023-08-02 16:05] VITALS: BP 106/66; PULSE 87; RESP 16; TEMP 36.7
== END 2023-08-02 16:15 | disposition home or self-care (01) | DRG 807 ==
LOC: WPOUT 22:22 → WP 22:22
PROVIDERS: Admitting Provider Obstetrics & Gynecology; PCP Nurse Practitioner Family; Visit Provider Obstetrics & Gynecology
DX: O42.92 Full-term premature rupture of membranes, unspecified as to length of time between rupture and onset of labor (principal); Z37.0 Single live birth; O99.344 Other mental disorders complicating childbirth; F41.9 Anxiety disorder, unspecified; O70.0 First degree perineal laceration during delivery; Z3A.38 38 weeks gestation of pregnancy; Z87.59 Personal history of other complications of pregnancy, childbirth and the puerperium
CPT/HCPCS: 59025; 59050; 84112; 85025; 86780; 86850; 86900; 86901; 99221; J7120; G0378